=== PATIENT | female | born 1960 | race Hispanic/Latino ===

== ENCOUNTER → 2017-11-11 | Outpatient (CLI) | payer OTHER ==
--- NOTE | 2017-11-14 16:06 | Diagnostic Imaging Report ---
#[id number] - [id number] #BILATERAL DIGITAL SCREENING MAMMOGRAM WITH CAD: 11/11/2017 CLINICAL: Routine screening. Comparison is made to exam dated: 06/03/2013 mammogram - [facility]. Current study contains 4 films. The tissue of both breasts is predominantly fatty. Current study was also evaluated with a Computer Aided Detection (CAD) system. No significant masses, calcifications, or other findings are seen in either breast. There has been no significant interval change. IMPRESSION: NEGATIVE There is no mammographic evidence of malignancy. A 1 year screening mammogram is recommended. The patient will be notified by letter of the results. Hill gill/alma delia:11/14/2017 09:49:29 Emergency Medicine Nurse Practitioner: Tanya RAGSDALE)(M), [facility] letter sent: Compared to Prior B9 Mammogram BI-RADS: 1 Negative
== END ==
LOC: MAMMO 10:00
PROVIDERS: ATTEND Obstetrics & Gynecology
DX: Z12.31 Encounter for screening mammogram for malignant neoplasm of breast (principal)
CPT/HCPCS: G0202

== ENCOUNTER 2024-08-24 09:10 | Emergency (ER) | payer BC, MEDICARE ==
[~2024-08-24] VITALS: Ht 154.9 cm; Wt 85.3 kg
[2024-08-24 09:36] VITALS: PULSE 58; RESP 18; TEMP 98.1
[2024-08-24] MEDS: FAMOTIDINE 20 MG/2 ML VIAL IV STA (10:03)
[2024-08-24] MEDS: SODIUM CHLORIDE 0.9% 1000ML 1,000 ML IV STA (10:03)
[2024-08-24] MEDS: KETOROLAC TROMETHAMINE 30 MG/ML VIAL IV STA (10:03)
[2024-08-24] MEDS: ONDANSETRON HCL INJ 2MG/ML 2ML 2 MG/ML VIAL IV STA (10:03)
[2024-08-24] MEDS ORDERED: IOPAMIDOL 370 MG/ML 100 ML INFUS..BTL INJ ONE (11:10)
[2024-08-24] MEDS ORDERED: ONDANSETRON ODT4 MG PO (12:29)
[2024-08-24] MEDS ORDERED: PANTOPRAZOLE SO40 MG PO (12:30)
[2024-08-24 12:50] VITALS: BP 132/60; PULSE 60; RESP 18; TEMP 98; O2SAT 98
== END 2024-08-24 12:52 | disposition home or self-care (01) ==
LOC: FSED 09:11
DX: R11.2 Nausea with vomiting, unspecified (principal); K52.9 Noninfective gastroenteritis and colitis, unspecified; K29.70 Gastritis, unspecified, without bleeding; R10.30 Lower abdominal pain, unspecified; K76.0 Fatty (change of) liver, not elsewhere classified; R05.9 Cough, unspecified
CPT/HCPCS: 74177; 80048; 80076; 81003; 82553; 84484; 85025; 93005; 99284; J1885; J2405; J7030; Q9967